=== PATIENT | female | born 1995 | race Caucasian/White ===

== ENCOUNTER 2016-11-28 09:11 | Emergency (ER) | payer OTHER ==
[~2016-11-28] VITALS: Ht 160 cm; Wt 63.5 kg
[~2016-11-28 09:11] MED LIST: CEPH-38 PO; CEPH500C PO; CODE-54 PO; IBP600T1 PO; PREN1TAB19 PO; PRENATAL VITAMINS
[2016-11-28 09:52] LABS: BILIRUBIN,URINE NEGATIVE (NEGATIVE); KETONES,URINE NEGATIVE (NEGATIVE); LEUKOCYTE ESTERASE ,URINE NEGATIVE (NEGATIVE); NITRITE,URINE NEGATIVE (NEGATIVE); PH,URINE 6 (5-9); PROTEIN,URINE NEGATIVE (NEGATIVE); UROBILINOGEN,URINE NORMAL (NORMAL)
[2016-11-28 10:02] LABS: SQUAMOUS EPITHELIAL CELL,UR 0-2 /HPF
--- NOTE | 2016-11-28 10:48 | ED GU-Female ---
General Chief Complaint: Abdominal/GI Problems Stated Complaint: LT SIDE PAIN,LOWER ABD PAIN Nursing Triage Note: ARRIVED VIA AMB TO ROOM 09. COMPLAINS OF LEFT LOWER ABD PAIN THAT HAS RADIATED TO SUPRAPUBIC. STATES SHE HURTS WHEN SHE MOVES AND WHEN SHE HAS SEX. PT'S PARTNER STATES HE HAS GENITAL WARTS BUT SHE SHOWS NO SIGN OF THEM. Nursing Sepsis Screen: No Definite Risk Source: patient Exam Limitations: no limitations History of Present Illness Time seen by provider: 10:46 Initial Comments 2ER with reports of a 5 day history of left lower quadrant abdominal pain that radiates to the suprapubic and right lower quadrant. Pain is worse with sexual intercourse. She denies any unusual vaginal discharge but states that she does have a Mirena. She reports nausea no vomiting. No fevers or chills. No constipation or diarrhea. She does report urinary hesitancy. Timing/Duration: week Severity/Quality: moderate Location: LLQ, suprapubic Radiation: none Activities at Onset: none Prior Genitourinary Problems: none Modifying Factors: Worsens With Other (intercourse) Allergies and Home Medications Allergies Coded Allergies: No Known Drug Allergies (Unverified , 09/05/13) Home Medications No Active Prescriptions or Reported Meds Constitutional: see HPI EENTM: see HPI Respiratory: no symptoms reported Cardiovascular: no symptoms reported Genitourinary: see HPI, denies burning, denies discharge, dysuria, denies frequency, denies flank pain, denies hematuria, pain Musculoskeletal: no symptoms reported Skin: no symptoms reported Psychiatric/Neurological: No Symptoms Reported Endocrine: No Symptoms Reported Past Heaaldb-Vpddmo-Flvaon Hx Patient Social History Recent Foreign Travel: No Contact w/Someone Who Travel: No Recent Infectious Disease Expo: No Immunizations Up To Date Tetanus Booster (TDap): Unknown PED Vaccines UTD: No Surgeries HX Surgeries: No Respiratory Hx Respiratory Disorders: No Cardiovascular Hx Cardiac Disorders: No Neurological Hx Neurological Disorders: No Reproductive System Sexually Transmitted Disease: Yes (PAST HX) Genitourinary Hx Genitourinary Disorders: No Gastrointestinal Hx Gastrointestinal Disorders: No Musculoskeletal Hx Musculoskeletal Disorders: No Endocrine Hx Endocrine Disorders: No HEENT HX ENT Disorders: No Cancer Hx Cancer: No Psychosocial Hx Psychiatric Problems: No Integumentary HX Skin/Integumentary Disorder: No Blood Transfusions Hx Blood Disorders: No Adverse Reaction to a Blood Tr: No Family Medical History Family Medial History: FH: cancer FH: lymphoma Physical Exam Vital Signs Vital Sign - Last 12Hours 11/28/16 09:25 Temp 99.0 Pulse 66 Resp 16 B/P (MAP) 117/57 Pulse Ox 98 Capillary Refill : Less Than 3 Seconds General Appearance: WD/WN, no apparent distress HEENT: PERRL/EOMI, normal ENT inspection Neck: non-tender, full range of motion Cardiovascular: regular rate, rhythm, no murmur Respiratory: normal breath sounds, no respiratory distress, no accessory muscle use Gastrointestinal: normal bowel sounds, non tender, soft Pelvic: discharge (purulent material from cervical os; cervical friability and appears inflamed. strings of IUD visualized. ), No lesions, No mass, No tender w / cervical motion, other Extremities: normal range of motion, non-tender Neurologic/Psychiatric: alert, normal mood/affect, oriented x 3 Skin: normal color, warm/dry Progress/Results/Core Measures Results/Orders Lab Results Laboratory Tests Test 11/28/16 09:40 11/28/16 10:55 11/28/16 11:05 Range/Units Urine Color YELLOW Urine Clarity CLEAR Urine pH 6 5-9 Urine Specific [place] 1.020 1.016-1.022 Urine Protein NEGATIVE NEGATIVE Urine Glucose (UA) NEGATIVE NEGATIVE Urine Ketones NEGATIVE NEGATIVE Urine Nitrite NEGATIVE NEGATIVE Urine Bilirubin NEGATIVE NEGATIVE Urine Urobilinogen NORMAL NORMAL MG/DL Urine Leukocyte Esterase NEGATIVE NEGATIVE Urine RBC (Auto) NEGATIVE NEGATIVE Urine RBC NONE /HPF Urine WBC NONE /HPF Urine Squamous Epithelial Cells 0-2 /HPF Urine Crystals NONE /LPF Urine Bacteria FEW H /HPF Urine Casts NONE /LPF Urine Mucus NEGATIVE /LPF Urine Culture Indicated NO White Blood Count 5.7 4.3-11.0 10^3/uL Red Blood Count 4.29 L 4.35-5.85 10^6/uL Hemoglobin 13.7 11.5-16.0 G/DL Hematocrit 40 35-52 % Mean Corpuscular Volume 94 80-99 FL Mean Corpuscular Hemoglobin 32 25-34 PG Mean Corpuscular Hemoglobin Concent 34 32-36 G/DL Red Cell Distribution Width 12.5 10.0-14.5 % Platelet Count 212 130-400 10^3/uL Mean Platelet Volume 10.1 7.4-10.4 FL Neutrophils (%) (Auto) 73 42-75 % Lymphocytes (%) (Auto) 19 12-44 % Monocytes (%) (Auto) 7 0-12 % Eosinophils (%) (Auto) 1 0-10 % Basophils (%) (Auto) 0 0-10 % Neutrophils # (Auto) 4.2 1.8-7.8 X 10^3 Lymphocytes # (Auto) 1.1 1.0-4.0 X 10^3 Monocytes # (Auto) 0.4 0.0-1.0 X 10^3 Eosinophils # (Auto) 0.0 0.0-0.3 10^3/uL Basophils # (Auto) 0.0 0.0-0.1 10^3/uL Micro Results Microbiology 11/28/16 Genital Culture, Resulted Pending 11/28/16 RAMON Preparation, Resulted Pending 11/28/16 Wet Prep - Final, Resulted My Orders Orders - TUYET BRAVO APRN Cbc With Automated Diff (11/28/16 10:56) Ceftriaxone Injection (Rocephin Injectio (11/28/16 11:00) Lidocaine 1% Injection (Xylocaine 1% Inj (11/28/16 11:00) Azithromycin Tablet (Zithromax Tablet) (11/28/16 11:00) Us Non Ob Pelvis Comp/Transvag (11/28/16 10:58) Medications Given in ED Current Medications Medications Dose Ordered Sig/Aníbal Route Start Time Stop Time Status Last Admin Dose Admin Ceftriaxone Sodium 1,000 mg ONCE ONCE IM 11/28/16 11:00 11/28/16 11:01 DC 11/28/16 11:11 1,000 MG Lidocaine HCl 2.1 ml ONCE ONCE INJ 11/28/16 11:00 11/28/16 11:01 DC 11/28/16 11:11 2.1 ML Vital Signs/I&O Vital Sign - Last 12Hours 11/28/16 09:25 Temp 99.0 Pulse 66 Resp 16 B/P (MAP) 117/57 Pulse Ox 98 Blood Pressure Mean: 77 Point of Care Testing Urine -Bedside: Negative Departure Impression Impression: Primary Impression: Bacterial vaginosis Additional Impression: LLQ pain Disposition: 01 HOME, SELF-CARE Condition: Stable Departure-Patient Inst. Decision time for Depature: 11:31 Referrals: ANGELIQUE MEJÍA DO (PCP) Primary Care Physician MALACHI PATTERSON APRN (Family) Primary Care Physician Patient Instructions: Bacterial Vaginosis Add. Discharge Instructions: 1. Antibiotics as directed 2. Follow-up with your doctor next week 3. Return to ER for any worsening All discharge instructions reviewed with patient and/or family. Voiced understanding. Scripts Metronidazole (Flagyl) 500 Mg Tablet 500 MG PO BID, #14 TAB Prov: TUYET BRAVO APRN 11/28/16 TUYET BRAVO APRN Nov 28, 2016 10:48
[2016-11-28] MEDS ORDERED: AZITHROMYCIN 250 MG TAB (ZITHROMAX) PO SCH (11:00)
[2016-11-28] MEDS ORDERED: LIDOCAINE 1% INJ 20 ML (XYLOCAINE) VIAL INJ ONE (11:00)
[2016-11-28] MEDS ORDERED: cefTRIAXone 1 GM (ROCEPHIN) VIAL IM ONE (11:00)
[2016-11-28 11:13] LABS: BASOPHILS % (AUTO) 0 % (0-10); EOSINOPHILS % (AUTO) 1 % (0-10); LYMPHOCYTES # (AUTO) 1.1 X 10^3 (1.0-4.0); LYMPHOCYTES % (AUTO) 19 % (12-44); MEAN CORPUSCULAR HEMOGLOBIN 32 PG (25-34); MEAN CORPUSCULAR HGB CONC 34 G/DL (32-36); MEAN CORPUSCULAR VOLUME 94 FL (80-99); MEAN PLATELET VOLUME 10.1 FL (7.4-10.4); MONOCYTES # (AUTO) 0.4 X 10^3 (0.0-1.0); MONOCYTES % (AUTO) 7 % (0-12); NEUTROPHILS # (AUTO) 4.2 X 10^3 (1.8-7.8); NEUTROPHILS % (AUTO) 73 % (42-75); PLATELET COUNT 212 10^3/uL (130-400); RED BLOOD COUNT 4.29 10^6/uL (4.35-5.85); RED CELL DISTRIBUTION WIDTH 12.5 % (10.0-14.5); WHITE BLOOD COUNT 5.7 10^3/uL (4.3-11.0)
[2016-11-28] MEDS ORDERED: METR500T PO (11:32)
[2016-11-28 11:57] VITALS: BP 112/61
--- NOTE | 2016-11-28 12:16 | Diagnostic Imaging Report ---
EXAM: Transabdominal and transvaginal pelvic ultrasound. INDICATION: Left pelvic pain. FINDINGS: The uterus is 7.9 x 5.6 x 4.1 cm. The endometrial stripe is by a small amount of endometrial fluid. The total thickness of the endometrial stripe is 4 mm. There is the suggestion of an IUD which appears to be in good position. The right ovary is 2.2 x 1.3 x 2.5 cm. The left ovary is 4.4 x 2.1 x 1.9 cm. The left ovary demonstrates a 2.2 x 1.4 x 1.8 cm centrally cystic lesion with thickened borrego suggestive of corpus luteum. Arterial and venous waveforms are demonstrated in both ovaries. A small amount of free fluid is seen in the left side of the pelvis. IMPRESSION: Small amount of free fluid is seen in the left adnexa. There is a 2.2 cm corpus luteum cyst seen in the left ovary. Dictated by: Dictated on workstation # [id number]
== END 2016-11-28 11:57 | disposition home or self-care (01) ==
LOC: EDUNIT# 09:11 → ER 09:14
DX: N83.12 Corpus luteum cyst of left ovary (principal); Z97.5 Presence of (intrauterine) contraceptive device; R10.32 Left lower quadrant pain
CPT/HCPCS: 36415; 76830; 76856; 81000; 84703; 85025; 87070; 87210; 87220; 87491; 87591; 96372; 99284

== ENCOUNTER 2017-08-28 10:08 | Outpatient (CLI) | payer OTHER ==
[~2017-08-28] VITALS: Ht 160 cm; Wt 69.4 kg
[~2017-08-28 10:08] MED LIST changes: +METR500T PO
[2017-08-29] MEDS ORDERED: IBUP-1773 PO (08:22)
[2017-08-29] MEDS ORDERED: HYDR-757 PO (08:22)
== END 2017-08-28 10:42 ==
LOC: PREOP 10:08
PROVIDERS: ATTEND Obstetrics & Gynecology
DX: Z01.818 Encounter for other preprocedural examination (principal); O02.1 Missed abortion

== ENCOUNTER 2017-08-29 07:08 | Day surgery (SDC) | payer OTHER ==
[~2017-08-29] VITALS: Ht 160 cm; Wt 69.4 kg
--- NOTE | 2017-08-29 07:14 | Progress Note-Pre Operative ---
Pre-Operative Progress Note H&P Reviewed The H&P was reviewed, patient examined and no changes noted. Date Seen by Provider: August 29, 2017 Time Seen by Provider: 08:15 Date H&P Reviewed: August 29, 2017 Time H&P Reviewed: 08:15 Pre-Operative Diagnosis: Missed AB measuring 9weeks 3 days CHANDLER BYRD DO August 29, 2017 7:14 am
[2017-08-29 07:15] VITALS: BP 138/89
[2017-08-29] MEDS: LACTATED RINGERS 1,000 ML IV PRN ×2 (07:35→09:20)
[2017-08-29 07:45] LABS: BASOPHILS % (AUTO) 0 % (0-10); EOSINOPHILS # (AUTO) 0.1 10^3/uL (0.0-0.3); EOSINOPHILS % (AUTO) 1 % (0-10); HEMATOCRIT 39 % (35-52); HEMOGLOBIN 13.7 G/DL (11.5-16.0); LYMPHOCYTES # (AUTO) 1.4 X 10^3 (1.0-4.0); LYMPHOCYTES % (AUTO) 25 % (12-44); MEAN CORPUSCULAR HEMOGLOBIN 33 PG (25-34); MEAN CORPUSCULAR HGB CONC 36 G/DL (32-36); MEAN CORPUSCULAR VOLUME 94 FL (80-99); MEAN PLATELET VOLUME 9.6 FL (7.4-10.4); MONOCYTES # (AUTO) 0.5 X 10^3 (0.0-1.0); MONOCYTES % (AUTO) 9 % (0-12); NEUTROPHILS # (AUTO) 3.6 X 10^3 (1.8-7.8); NEUTROPHILS % (AUTO) 64 % (42-75); PLATELET COUNT 248 10^3/uL (130-400); RED CELL DISTRIBUTION WIDTH 12.3 % (10.0-14.5); WHITE BLOOD COUNT 5.6 10^3/uL (4.3-11.0)
[2017-08-29] MEDS ORDERED: MIDAZOLAM 2 MG/2 ML (VERSED) VIAL ONE ×2 (07:45→08:06)
[2017-08-29] MEDS ORDERED: fentaNYL INJECTION 100 MCG/2 ML AMP ONE (07:45)
[2017-08-29] MEDS ORDERED: KETOROLAC 30 MG/ML VIAL ONE (07:45)
[2017-08-29] MEDS ORDERED: proPOfol 200 MG/20 ML (DIPRIVAN) VIAL IV ONE (07:45)
[2017-08-29] MEDS ORDERED: ONDANSETRON 4 MG/2 ML (SDV) Z0FRAN ONE (07:45)
[2017-08-29] MEDS ORDERED: DEXAMETHASONE 10 MG/ML (DECADRON) 1 ML VIAL ONE (07:45)
[2017-08-29] MEDS ORDERED: LIDOCAINE PF 2% 5 ML (XYLOCAINE) VIAL ONE (07:45)
[2017-08-29] MEDS ORDERED: MIDAZOLAM 10 MG/2 ML (VERSED) VIAL IVP PRN (08:00)
[2017-08-29] MEDS ORDERED: D5 LR IV SOLUTION 1,000 ML IV SCH (08:19)
--- NOTE | 2017-08-29 08:21 | Discharge Inst-Women's Service ---
Discharge Inst-Women's Serv Depart Medication/Instructions New, Converted or Re-Newed RX: RX on Chart Consults/Follow Up Additional Follow Up: Yes Orders/Referrals DR. Byrd in 3 weeks Activity Activity: Activity as Tolerated Driving Instructions: No Driving for 1 Week NO SMOKING: NO SMOKING Nothing Inside Vagina: No Douching, No Cleone, No Tampons Diet Discharge Diet: No Restrictions Symptoms to Report to : Bleeding Excessive, Pain Increased, Fever Over 101 Degrees F, Vaginal Bleeding Increase, Questions/Concerns For Any Problems or Questions: Contact Your Physician CHANDLER BYRD DO August 29, 2017 8:21 am
[2017-08-29] MEDS ORDERED: HYDR-757 PO (08:22)
[2017-08-29] MEDS ORDERED: IBUP-1773 PO (08:22)
[2017-08-29] MEDS ORDERED: MIDAZOLAM 2 MG/2 ML (VERSED) VIAL IV PRN (08:30)
[2017-08-29] MEDS ORDERED: KETOROLAC 30 MG/ML VIAL IVP ONE (08:30)
[2017-08-29] MEDS ORDERED: HYDROcodone/APAP 5 MG/325 MG (LORTAB) TAB PO PRN (08:30)
[2017-08-29] MEDS ORDERED: ONDANSETRON 4 MG/2 ML (SDV) Z0FRAN IVP PRN ×2 (08:30→09:00)
[2017-08-29] MEDS ORDERED: SEVOFLURANE (ULTANE) 15 ML INHAL SOLN ONE (08:33)
[2017-08-29] MEDS ORDERED: morphine INJ 10 MG/ML 1ML (SYR OR VIAL) IVP PRN (09:00)
[2017-08-29] MEDS ORDERED: morphine INJ 10 MG/ML 1ML (SYR OR VIAL) ONE (09:18)
[2017-08-29 09:50] VITALS: BP 119/65
[2017-08-29] MEDS ORDERED: HYDROcodone/APAP 5 MG/325 MG (LORTAB) TAB ONE (10:10)
[2017-08-29 10:20] VITALS: BP 116/62
[2017-08-29 10:50] VITALS: BP 110/68
--- NOTE | 2017-08-29 10:54 | Anesthesia-General Post-Op ---
General Patient Condition Mental Status/LOC: Same as Preop Cardiovascular: Satisfactory Nausea/Vomiting: Absent Respiratory: Satisfactory Pain: Controlled Complications: Absent Post Op Complications Complications None Follow Up Care/Instructions Patient Instructions None needed. Anesthesia/Patient Condition Patient Condition Patient is doing well, no complaints, stable vital signs, no apparent adverse anesthesia problems. No complications reported per nursing. KAE BARRAGAN CRNA August 29, 2017 10:54
--- NOTE | 2017-08-30 13:23 | OPERATIVE REPORT ---
DATE OF SERVICE: PREOPERATIVE DIAGNOSES: 1. A 21-year-old G4, P1 at 10 weeks and 6 days gestation. 2. Missed AB. POSTOPERATIVE DIAGNOSES: 1. A 21-year-old G4, P1 at 10 weeks and 6 days gestation. 2. Missed AB. PROCEDURE: Suction D and C. SURGEON: Dr. Chandler Byrd. ANESTHESIA: General. ESTIMATED BLOOD LOSS: 400 mL. URINE OUTPUT: 150 mL clear urine. FLUIDS: 1500 mL of lactated Ringer's solution. FINDINGS: There is a moderate amount of products of conception, grossly normal uterus and cervix and vagina. SPECIMEN SENT: Products of conceptions. INDICATION FOR PROCEDURE: A 21-year-old female was seen in my office earlier in the week for first visit where it was found that she was supposed to be 10 weeks' gestation and was measuring 9 weeks and there was no cardiac activity demonstrated on ultrasound. Beta hCG levels were drawn and it was found to be following appropriately and consistently with missed AB, so I discussed with the patient proceeding with suction D and C versus a more conservative manner of management and allowing time and waiting for her to miscarry on her own or doing a medical induction of miscarriage with misoprostol. The patient elected to proceed with D and C. Risks of procedure were discussed with the patient in detail including risks of bleeding, infection and damaging the uterus, possible need for blood transfusion, postoperative complications and even . After everything was discussed with the patient and her , consent was obtained in the preoperative area and the patient was taken to the operating room. OPERATIVE REPORT IN DETAIL: Once in the operating room, general anesthesia was found to be adequate, she was placed in dorsal lithotomy position, prepped and draped in normal sterile fashion. A weighted speculum was inserted in the patient's vagina and a straight catheter was used to catheterize the patient. The cervix was then grasped at 12 o'clock position using a long Allis clamp. I then gently dilated cervix using Hegar dilators to a maximum dilatation of 1.2 cm at which point, I select an 8 rigid [place] curette and placed this within the endometrial cavity and then attached to a [place] device and apply suction. The suction rises all the way up to 55 mmHg. I methodically clear out the endometrial cavity on several circulating passes and a moderate amount of tissue is collected. After this was done and the bleeding seemed to slow down, I then performed a light curettage using a medium endometrial curette. There is no evidence of residual products of conception and make one final pass with the suction curette after which the bleeding is noted to be minimal. I then removed all other instruments from the patient's vagina. The patient tolerated the procedure well and was taken to recovery in stable condition. Lap and sponge counts were correct at the end of the procedure. Instrument counts are correct as well. Job ID: [id number] DocumentID: [id number] Dictated Date: 08/30/2017 07:48:26 [employer] Trimmer Date: 08/30/2017 13:23:19 Dictated By: CHANDLER BYRD DO
== END 2017-08-29 10:50 | disposition home or self-care (01) ==
LOC: SDC 07:08
PROVIDERS: ATTEND Obstetrics & Gynecology
DX: O02.1 Missed abortion (principal); F17.210 Nicotine dependence, cigarettes, uncomplicated
CPT/HCPCS: 36415; 85025; 86850; 86900; 86901; 87081; 88305

== ENCOUNTER 2018-01-10 14:42 | Emergency (ER) | payer OTHER ==
[~2018-01-10] VITALS: Ht 162.6 cm; Wt 70.3 kg
[~2018-01-10 14:42] MED LIST changes: +HYDR-4226 PO; +IBUP-1773 PO
--- NOTE | 2018-01-10 16:43 | ED GU-Female ---
General Chief Complaint: -Female Stated Complaint: 6 WKS , BLEEDING Nursing Triage Note: pt complaint of vaginal bleeding starting last night. states small amount with clots. pt 6 wks preg. pt has had 2 miscarricages past most recent a D&C in august Nursing Sepsis Screen: No Definite Risk Source: patient Exam Limitations: no limitations History of Present Illness Date Seen by Provider: Jan 10, 2018 Time Seen by Provider: 16:42 Initial Comments To ER per protocol with reports of vaginal bleeding that started last night. Small amount with clots. She has trace result to be about 6 weeks . Her last missed her period was in November. History of 3 miscarriages. She follows with Dr. COOPER. She denies fevers or chills but does report some lower abdominal cramping. Timing/Duration: yesterday Severity/Quality: moderate Location: suprapubic Activities at Onset: none Associated Symptoms: No nausea/vomiting, No urinary frequency Allergies and Home Medications Allergies Coded Allergies: No Known Drug Allergies (Unverified , 09/05/13) Home Medications Hydrocodone/Acetaminophen 1 Each Tablet, 1-2 TAB PO Q4H PRN for PAIN-MODERATE Prescribed by: CHANDLER COOPER on 08/29/17821 Ibuprofen 600 Mg Tablet, 600 MG PO Q6H Prescribed by: CHANDLER COOPER on 08/29/17821 Patient Home Medication List Home Medication List Reviewed: Yes Review of Systems Review of Systems Constitutional: see HPI EENTM: see HPI Respiratory: no symptoms reported Cardiovascular: no symptoms reported Genitourinary: no symptoms reported Musculoskeletal: no symptoms reported Skin: no symptoms reported Psychiatric/Neurological: No Symptoms Reported Endocrine: No Symptoms Reported Hematologic/Lymphatic: No Symptoms Reported Past Nsnzsom-Qppsqf-Casens Hx Patient Social History Type Used: Electronic/Vapor Recent Foreign Travel: No Contact w/Someone Who Travel: No Recent Infectious Disease Expo: No Recent Hopitalizations: No Immunizations Up To Date Tetanus Booster (TDap): Unknown PED Vaccines UTD: No Seasonal Allergies Seasonal Allergies: Yes Past Medical History Surgeries: No Respiratory: No Cardiac: No Neurological: No Sexually Transmitted Disease: Yes (PAST HX) Genitourinary: No Gastrointestinal: No Musculoskeletal: No Endocrine: No Cancer: No Psychosocial: No Integumentary: No Blood Disorders: No Adverse Reaction/Blood Tranf: No Family Medical History FH: cancer FH: lymphoma Physical Exam Vital Signs Vital Signs - First Documented 01/10/18 15:41 Temp 99.9 Pulse 95 Resp 18 B/P (MAP) 135/83 (100) Pulse Ox 100 O2 Delivery Room Air Capillary Refill : Less Than 3 Seconds Height, Weight, BMI Height: 5'4.00" Weight: 155lbs. 0.0oz. 70.435111be; 27.1 BMI Method:Stated General Appearance: WD/WN, no apparent distress HEENT: PERRL/EOMI, normal ENT inspection Neck: non-tender, full range of motion Respiratory: no respiratory distress, no accessory muscle use Gastrointestinal: normal bowel sounds, non tender, soft Extremities: normal range of motion, non-tender Neurologic/Psychiatric: alert, normal mood/affect, oriented x 3 Skin: normal color, warm/dry Progress/Results/Core Measures Suspected Sepsis Recent Fever Within 48 Hours: No Infection Criteria Present: None New/Unexplained Altered Menta: No Sepsis Screen: No Definite Risk SIRS Temperature:99.9 Pulse: 95 Respiratory Rate: 18 Laboratory Tests 01/10/18 17:30: White Blood Count 4.9 Blood Pressure 135 /83 Mean: 100 Laboratory Tests 01/10/18 17:30: Platelet Count 277 Results/Orders Lab Results Laboratory Tests Test 01/10/18 13:35 01/10/18 17:30 Range/Units Urine Color YELLOW Urine Clarity CLEAR Urine pH 7 5-9 Urine Specific [place] 1.010 L 1.016-1.022 Urine Protein NEGATIVE NEGATIVE Urine Glucose (UA) NEGATIVE NEGATIVE Urine Ketones NEGATIVE NEGATIVE Urine Nitrite NEGATIVE NEGATIVE Urine Bilirubin NEGATIVE NEGATIVE Urine Urobilinogen NORMAL NORMAL MG/DL Urine Leukocyte Esterase NEGATIVE NEGATIVE Urine RBC (Auto) 5+ H NEGATIVE Urine RBC 50-100 H /HPF Urine WBC NONE /HPF Urine Crystals NONE /LPF Urine Bacteria NEGATIVE /HPF Urine Casts NONE /LPF Urine Mucus NEGATIVE /LPF Urine Culture Indicated NO White Blood Count 4.9 4.3-11.0 10^3/uL Red Blood Count 4.05 L 4.35-5.85 10^6/uL Hemoglobin 13.1 11.5-16.0 G/DL Hematocrit 38 35-52 % Mean Corpuscular Volume 94 80-99 FL Mean Corpuscular Hemoglobin 32 25-34 PG Mean Corpuscular Hemoglobin Concent 35 32-36 G/DL Red Cell Distribution Width 13.0 10.0-14.5 % Platelet Count 277 130-400 10^3/uL Mean Platelet Volume 9.6 7.4-10.4 FL Neutrophils (%) (Auto) 65 42-75 % Lymphocytes (%) (Auto) 27 12-44 % Monocytes (%) (Auto) 7 0-12 % Eosinophils (%) (Auto) 1 0-10 % Basophils (%) (Auto) 0 0-10 % Neutrophils # (Auto) 3.2 1.8-7.8 X 10^3 Lymphocytes # (Auto) 1.3 1.0-4.0 X 10^3 Monocytes # (Auto) 0.3 0.0-1.0 X 10^3 Eosinophils # (Auto) 0.1 0.0-0.3 10^3/uL Basophils # (Auto) 0.0 0.0-0.1 10^3/uL Human Chorionic Gonadotropin, Quant 797 H <5 MIU/ML My Orders Orders - TUYET BRAVO APRN Cbc With Automated Diff (01/10/18 16:16) Abo Rh Type (01/10/18 16:16) Hcg,Quantitative (01/10/18 16:16) Ua Culture If Indicated (01/10/18 16:16) Us Ob Transvaginal [id number] (01/10/18 16:39) Vital Signs/I&O 01/10/18 15:41 Temp 99.9 Pulse 95 Resp 18 B/P (MAP) 135/83 (100) Pulse Ox 100 O2 Delivery Room Air Capillary Refill : Less Than 3 Seconds Blood Pressure Mean: 100 Departure Impression Primary Impression: Threatened miscarriage Disposition: 01 HOME, SELF-CARE Condition: Stable Departure-Patient Inst. Decision time for Depature: 18:40 Referrals: ANGELIQUE MEJÍA DO (PCP) Primary Care Physician MALACHI PATTERSON APRN (Family) Primary Care Physician Patient Instructions: Threatened Miscarriage (DC) Add. Discharge Instructions: 1. Follow-up with Dr. Cooper next week 2. Return to ER for any concerns 3. All discharge instructions reviewed with patient and/or family. Voiced understanding. Copy Copies To 1: CHANDLER COOPER PETER J APRN Jan 10, 2018 16:43
[2018-01-10 17:37] LABS: BASOPHILS % (AUTO) 0 % (0-10); EOSINOPHILS # (AUTO) 0.1 10^3/uL (0.0-0.3); EOSINOPHILS % (AUTO) 1 % (0-10); HEMATOCRIT 38 % (35-52); HEMOGLOBIN 13.1 G/DL (11.5-16.0); LYMPHOCYTES # (AUTO) 1.3 X 10^3 (1.0-4.0); LYMPHOCYTES % (AUTO) 27 % (12-44); MEAN CORPUSCULAR HEMOGLOBIN 32 PG (25-34); MEAN CORPUSCULAR HGB CONC 35 G/DL (32-36); MEAN CORPUSCULAR VOLUME 94 FL (80-99); MEAN PLATELET VOLUME 9.6 FL (7.4-10.4); MONOCYTES # (AUTO) 0.3 X 10^3 (0.0-1.0); MONOCYTES % (AUTO) 7 % (0-12); NEUTROPHILS # (AUTO) 3.2 X 10^3 (1.8-7.8); NEUTROPHILS % (AUTO) 65 % (42-75); PLATELET COUNT 277 10^3/uL (130-400); RED BLOOD COUNT 4.05 10^6/uL (4.35-5.85); WHITE BLOOD COUNT 4.9 10^3/uL (4.3-11.0)
[2018-01-10 17:39] LABS: BILIRUBIN,URINE NEGATIVE (NEGATIVE); CLARITY,URINE CLEAR; COLOR,URINE YELLOW; GLUCOSE, URINE (UA) NEGATIVE (NEGATIVE); KETONES,URINE NEGATIVE (NEGATIVE); LEUKOCYTE ESTERASE ,URINE NEGATIVE (NEGATIVE); NITRITE,URINE NEGATIVE (NEGATIVE); PH,URINE 7 (5-9); PROTEIN,URINE NEGATIVE (NEGATIVE); UROBILINOGEN,URINE NORMAL (NORMAL)
[2018-01-10 18:47] LABS: BACTERIA,URINE NEGATIVE /HPF; RBC,URINE 50-100 /HPF
--- NOTE | 2018-01-10 18:53 | Diagnostic Imaging Report ---
INDICATION: and bleeding. EXAMINATION: OB ultrasound. FINDINGS: There is an elongated intrauterine fluidlike collection showing mobility during scanning without an identifiable yolk sac, embryonic pole or independent cardiac activity. There does appear to be complex fluid within the endometrial canal extending to the cervix suspicious for blood. No extrauterine abnormality. No adnexal lesion. The normal appearing heterogeneous endometrium, itself, is thickened at 1 cm. IMPRESSION: Small elongated fluid collection was mobile within the thickened and irregular endometrial canal, suspicious for blighted ovum. This showed movement during real-time scanning. Short-term followup and serial beta hCG recommended. There is suggestion of some blood within the lower endometrial canal approaching the cervix. No extrauterine abnormality. No evidence for torsion or visualized ectopic gestation. Dictated by: Dictated on workstation # [id number]
[2018-01-10 18:57] VITALS: BP 135/83
== END 2018-01-10 18:57 | disposition home or self-care (01) ==
LOC: EDUNIT# 14:42 → ER 14:45
DX: O20.0 Threatened abortion (principal); Z87.59 Personal history of other complications of pregnancy, childbirth and the puerperium; Z3A.01 Less than 8 weeks gestation of pregnancy
CPT/HCPCS: 36415; 76817; 81000; 84702; 85025; 86900; 86901

== ENCOUNTER → 2018-06-10 | Outpatient (CLI) | payer OTHER ==
--- NOTE | 2018-06-10 15:44 | Diagnostic Imaging Report ---
INDICATION: survey. TECHNIQUE: Multiple real-time grayscale images were obtained over the gravid uterus. COMPARISON: None. FINDINGS: There is a single live fetus in a transverse presentation, head to maternal right. heart rate was recorded at 135 beats per minute. Placenta is anterior. The amniotic fluid volume appears normal. survey demonstrates kidneys, bladder and stomach to be unremarkable. The brain is unremarkable. There is a four-chamber heart. There is a three-vessel cord with normal insertion. spine is unremarkable. Biometrical measurements are as follows: Biparietal 4.90 cm, age 20 weeks 6 days. Head circumference 17.68 cm, age 20 weeks 2 days. Abdominal circumference 15.59 cm, age 20 weeks 6 days. Femur length 3.61 cm, age 21 weeks 4 days. Sonographic estimate age: 21 weeks 0 days. Sonographic estimated date of delivery: 10/21/2018. Estimated Weight: 390 gm (+/- 57 gm). LMP percentile: 68%. heart rate: 135 beats per minute. number: 1 of 1. IMPRESSION: Single live IUP 21 weeks 0 days gestational age with an estimated date of confinement sonographically of 10/21/2018. No complicating features are identified. Dictated by: Dictated on workstation # [id number]
== END ==
LOC: RAD 14:20
PROVIDERS: ATTEND Obstetrics & Gynecology
DX: Z36.89 Encounter for other specified antenatal screening (principal); Z3A.21 21 weeks gestation of pregnancy
CPT/HCPCS: 76805

== ENCOUNTER 2018-10-06 20:12 | Inpatient (IN) | payer OTHER ==
[~2018-10-06] VITALS: Ht 161.3 cm; Wt 81.6 kg
--- NOTE | 2018-10-06 20:18 | NUR ---
SADIA AUSTIN presented to unit via ambulation from ED, accompanied by family members, with c/o CONTRACTIONS. SADIA AUSTIN weighed, gowned, voided, and to bed. EFHM and TOCO applied, VS taken. SADIA AUSTIN oriented to bed controls, call light, TV, heat, and A/C controls.
[2018-10-06] MEDS ORDERED: PREN1TAB19 PO (20:31)
[2018-10-06] MEDS ORDERED: ASPI-999 PO (20:31)
[2018-10-06 20:35] VITALS: BP 134/77
--- NOTE | 2018-10-06 21:36 | NUR ---
notified of pt's arrival, sve, and assessment. admission order received.
[2018-10-06] MEDS ORDERED: D5 LR IV SOLUTION 1,000 ML IV ONE (21:50)
[2018-10-06] MEDS ORDERED: D5 LR IV SOLUTION 1,000 ML IV SCH (22:12)
[2018-10-06] MEDS: D5 LR IV SOLUTION 1,000 ML IV SCH (22:41)
[2018-10-06 22:43] LABS: BASOPHILS % (AUTO) 0 % (0-10); EOSINOPHILS # (AUTO) 0.1 10^3/uL (0.0-0.3); EOSINOPHILS % (AUTO) 0 % (0-10); HEMATOCRIT 34 % (35-52); HEMOGLOBIN 11.3 G/DL (11.5-16.0); LYMPHOCYTES # (AUTO) 1.1 X 10^3 (1.0-4.0); LYMPHOCYTES % (AUTO) 10 % (12-44); MEAN CORPUSCULAR HEMOGLOBIN 34 PG (25-34); MEAN CORPUSCULAR HGB CONC 34 G/DL (32-36); MEAN CORPUSCULAR VOLUME 100 FL (80-99); MEAN PLATELET VOLUME 9.6 FL (7.4-10.4); MONOCYTES % (AUTO) 8 % (0-12); NEUTROPHILS # (AUTO) 9.6 X 10^3 (1.8-7.8); NEUTROPHILS % (AUTO) 82 % (42-75); PLATELET COUNT 204 10^3/uL (130-400); RED CELL DISTRIBUTION WIDTH 13.3 % (10.0-14.5); WHITE BLOOD COUNT 11.7 10^3/uL (4.3-11.0)
--- NOTE | 2018-10-06 22:45 | NUR ---
called to unit. update given. no new orders received.
[2018-10-06 23:00] VITALS: BP 120/73
--- NOTE | 2018-10-06 23:11 | NUR ---
Anesthesia provider notified of epidural request.
[2018-10-06] MEDS ORDERED: SUFENTA 0.6MCG/ML BUPIVA 0.125 100 ML ONE (23:16)
[2018-10-06 23:34] VITALS: BP 123/72
[2018-10-06 23:50] VITALS: BP 110/73
[2018-10-07] VITALS (69 sets, daily range): BP systolic 98–165; BP diastolic 53–100
[2018-10-07] MEDS ORDERED: fentaNYL INJECTION 100 MCG/2 ML AMP ONE (00:01)
[2018-10-07] MEDS: EPIDURAL (SUFENTA 0.6MCG/ML BUPIVA 0.125%) 100 ML BAG EPI SCH ×2 (00:25→08:45)
[2018-10-07] MEDS ORDERED: CATHETER FLUSH 10 ML SYR IV PRN (04:00)
[2018-10-07] MEDS ORDERED: LACTATED RINGERS 1,000 ML IV ONE (04:00)
[2018-10-07] MEDS ORDERED: NALOXONE 0.4 MG/ML 1 ML (NARCAN) VIAL IV PRN (04:00)
[2018-10-07] MEDS ORDERED: CATHETER FLUSH 10 ML SYR IV SCH ×2 (06:00→22:00)
[2018-10-07] MEDS: D5 LR IV SOLUTION 1,000 ML IV SCH (06:22)
[2018-10-07] MEDS ORDERED: OXYTOCIN/NORMAL SALINE 500 ML IV SCH ×2 (09:07→15:15)
--- NOTE | 2018-10-07 09:23 | History & Physical-OB ---
OB - Chief Complaint & HPI Date/Time Date of Admission: Date of Admission: Oct 06, 2018 at 22:16 Date seen by a Provider: Oct 07, 2018 Time Seen by a Provider: 08:15 Chief Complaint/History OB-Reason for Admission/Chief: Onset of Labor Hx : 5 Hx Para: 1 Expected Date of Delivery: Oct 23, 2018 Gestational Age in Weeks: 37 Gestational Age in Days: 4 Admission Nurse Assessment Rev: Yes History of Labs AB pos Antibody neg RNI RPR NR HBsAg NR HIV NR GC neg GBS neg Allergies and Home Medications Allergies Coded Allergies: No Known Drug Allergies (Unverified , 09/05/13) Patient Home Medication List Home Medication List Reviewed: Yes OB - History Hx of Present Care: Yes Ultrasounds: Normal mid trimester US Obstetrical Complications: None Medical Complications: None Obstetrical History Hx Multiple Gestation: No Hx Stillbirth: No Hx Complication: Yes (spontaneous abortions x2) Hx Induced Hypertens: No Hx Maternal Gestational Diabet: No Delivery History Hx Dystocia: No Hx Large For Gestational Age I: No Hx Small for Gestational Age I: No Hx Section: No Hx Vaginal Delivery Post C-Sec: No Hx Blood Disorders: No Adverse Rxn to Tranfusion: No Patient Past Medical History none Social History/Family History Recent Infectious Disease Expo: No Sexually Transmitted Disease: Yes (PAST HX) Alcohol Use: Denies Use Recreational Drug Use: No Immunizations Hepatitis A: No Hepatitis B: No Tetanus Booster (TDap): Unknown OB - Admission Exam Physical Exam Vitals: Vital Signs 10/07/18 10/07/18 05:45 07:00 Temp 97.3 Pulse 68 Resp 18 B/P (MAP) 107/63 (78) Pulse Ox 97 O2 Delivery Room Air HEENT: NCAT Lungs: Clear Abdomen: Gravid Extremities: Normal Reflexes: Normal Cervical Dilatation: 4cm Effacement: 75% Station: -1 Membranes: Intact Heart Rate: 130's Accelerations: Accelerations Present Decelerations: No Decelerations Short Term Variability: Present [employer] Variability: Average (6-25) Contractions on Admission: < 5 Minutes Apart Intensity: Firm Labs Laboratory Tests Test 10/06/18 22:30 Range/Units White Blood Count 11.7 H 4.3-11.0 10^3/uL Red Blood Count 3.36 L 4.35-5.85 10^6/uL Hemoglobin 11.3 L 11.5-16.0 G/DL Hematocrit 34 L 35-52 % Mean Corpuscular Volume 100 H 80-99 FL Mean Corpuscular Hemoglobin 34 25-34 PG Mean Corpuscular Hemoglobin Concent 34 32-36 G/DL Red Cell Distribution Width 13.3 10.0-14.5 % Platelet Count 204 130-400 10^3/uL Mean Platelet Volume 9.6 7.4-10.4 FL Neutrophils (%) (Auto) 82 H 42-75 % Lymphocytes (%) (Auto) 10 L 12-44 % Monocytes (%) (Auto) 8 0-12 % Eosinophils (%) (Auto) 0 0-10 % Basophils (%) (Auto) 0 0-10 % Neutrophils # (Auto) 9.6 H 1.8-7.8 X 10^3 Lymphocytes # (Auto) 1.1 1.0-4.0 X 10^3 Monocytes # (Auto) 1.0 0.0-1.0 X 10^3 Eosinophils # (Auto) 0.1 0.0-0.3 10^3/uL Basophils # (Auto) 0.0 0.0-0.1 10^3/uL OB - Assessment/Plan/Diagnosis Assessment Assessment: active labor Admission Dx 23 yo @ 37 weeks Active labor GBS neg Admission Status: Inpatient Order (span 2 midnights) Reason for Inpatient Admission: Active labor at term Plan Plan: Expectant Management CHANDLER BYRD DO Oct 07, 2018 09:23
[2018-10-07] MEDS ORDERED: ONDANSETRON 4 MG/2 ML (SDV) Z0FRAN ONE (09:25)
[2018-10-07] MEDS: ONDANSETRON 4 MG/2 ML (SDV) Z0FRAN IVP PRN ×2 (09:28→11:22)
[2018-10-07] MEDS ORDERED: LIDOCAINE/EPI 2% 1:200,00 (XYLOCAINE) 10 ML VIAL ONE (13:05)
[2018-10-07] MEDS ORDERED: TETANUS,DIPTH,PERTUSS P/F (BOOSTRIX) 0.5 ML VIAL IM ONE (15:15)
[2018-10-07] MEDS ORDERED: BENZOCAINE/MENTHOL (DERMOPLAST) 56 ML CAN TP PRN (15:15)
[2018-10-07] MEDS ORDERED: WITCH HAZEL(TUCKS) 40 EA JAR TOP PRN (15:15)
[2018-10-07] MEDS ORDERED: MEASLES,MUMPS,RUBELLA 1 EA INJ SQ ONE (15:15)
--- NOTE | 2018-10-07 15:21 | OB Labor & Delivery Record ---
L&D History Date of Service Date of Service: Oct 07, 2018 History Expected Date of Delivery: Oct 23, 2018 Gestational Age in Weeks: 37 Hx : 5 Hx Para: 1 Complications Events: Routine care Operative Indications (Cesarea: N/A-Vaginal Delivery Intrapartal Events: None L&D Stage1 Stage One Onset of Labor - Date: Oct 07, 2018 Monitors and Tracing Monitor Mode: External Heart Rate: 125 Monitor Accelerations: Uniform Monitor Decelerations: Variable Station: -1 Skilled Nursing Variability: Average (6-10) Short Term Variability: Present Presentation: Vertex Vital Signs VS - Last 72 Hours, by Label 10/06/18 10/06/18 10/06/18 10/06/18 20:35 23:00 23:34 23:50 Temp 98.6 97.9 Pulse 85 85 83 91 Resp 18 B/P (MAP) 134/77 (96) 120/73 (89) 123/72 (89) 110/73 (85) 10/07/18 10/07/18 10/07/18 10/07/18 00:00 00:05 00:10 00:15 Pulse 97 75 86 Resp 18 18 18 B/P (MAP) 151/70 (97) 125/66 (85) 134/74 (94) Pulse Ox 100 100 100 O2 Delivery Room Air Room Air Room Air 10/07/18 10/07/18 10/07/18 10/07/18 00:20 00:25 00:30 00:40 Temp 97.0 Pulse 76 77 75 86 Resp 18 18 18 18 B/P (MAP) 123/67 (85) 116/62 (80) 110/56 (74) 118/60 (79) Pulse Ox 95 100 98 99 O2 Delivery Room Air Room Air Room Air Room Air 10/07/18 10/07/18 10/07/18 10/07/18 00:45 00:50 00:55 01:05 Pulse 84 84 75 90 Resp 18 18 18 18 B/P (MAP) 103/65 (78) 122/63 (82) 107/68 (81) 99/55 (70) Pulse Ox 98 98 98 98 O2 Delivery Room Air Room Air Room Air Room Air 10/07/18 10/07/18 10/07/18 10/07/18 01:10 01:15 01:20 01:25 Pulse 95 76 75 92 Resp 18 18 18 18 B/P (MAP) 103/65 (78) 104/58 (73) 105/59 (74) 107/62 (77) Pulse Ox 98 98 96 98 O2 Delivery Room Air Room Air Room Air Room Air 10/07/18 10/07/18 10/07/18 10/07/18 01:30 01:45 01:50 02:20 Pulse 73 74 75 82 Resp 18 18 18 18 B/P (MAP) 100/53 (69) 103/57 (72) 100/55 (70) 110/60 (77) Pulse Ox 98 98 98 98 O2 Delivery Room Air Room Air Room Air Room Air 10/07/18 10/07/18 10/07/18 10/07/18 02:35 02:50 03:05 03:20 Temp 97.7 Pulse 75 77 75 68 Resp 18 18 18 18 B/P (MAP) 114/59 (77) 103/66 (78) 106/67 (80) 108/67 (81) Pulse Ox 97 97 98 98 O2 Delivery Room Air Room Air Room Air Room Air 10/07/18 10/07/18 10/07/18 10/07/18 03:35 03:50 04:20 04:35 Pulse 74 68 71 75 Resp 18 18 18 18 B/P (MAP) 112/62 (79) 111/63 (79) 104/57 (73) 113/57 (75) Pulse Ox 98 98 98 97 O2 Delivery Room Air Room Air Room Air Room Air 10/07/18 10/07/18 10/07/18 10/07/18 04:45 05:00 05:15 05:30 Pulse 75 72 67 69 Resp 18 18 18 18 B/P (MAP) 113/57 (75) 99/55 (70) 98/56 (70) 102/58 (73) Pulse Ox 97 97 97 97 O2 Delivery Room Air Room Air Room Air Room Air 10/07/18 10/07/18 10/07/18 10/07/18 05:45 06:00 06:15 06:30 Temp 97.3 Pulse 75 71 67 69 Resp 18 18 18 18 B/P (MAP) 103/64 (77) 102/56 (71) 104/57 (73) 103/56 (72) Pulse Ox 97 O2 Delivery Room Air Room Air Room Air Room Air 10/07/18 10/07/18 10/07/18 10/07/18 06:45 07:00 07:20 07:35 Temp 97.7 Pulse 81 68 69 70 Resp 18 18 18 18 B/P (MAP) 104/58 (73) 107/63 (78) 101/57 (72) 101/64 (76) O2 Delivery Room Air Room Air Room Air Room Air 10/07/18 10/07/18 10/07/18 10/07/18 07:50 08:05 08:20 08:35 Temp 97.6 Pulse 76 75 103 76 Resp 18 18 18 18 B/P (MAP) 107/61 (76) 110/65 (80) 107/62 (77) 112/57 (75) O2 Delivery Room Air Room Air Room Air Room Air 10/07/18 10/07/18 10/07/18 10/07/18 08:50 09:05 09:20 09:35 Pulse 80 73 79 70 Resp 18 18 18 18 B/P (MAP) 117/59 (78) 111/60 (77) 111/59 (76) 106/61 (76) O2 Delivery Room Air Room Air Room Air Room Air 10/07/18 10/07/18 10/07/18 10/07/18 09:50 10:05 10:20 10:35 Temp 97.9 Pulse 76 80 68 80 Resp 18 18 18 18 B/P (MAP) 106/63 (77) 106/64 (78) 109/63 (78) 106/62 (77) O2 Delivery Room Air Room Air Room Air Room Air 10/07/18 10/07/18 10/07/18 10/07/18 10:50 11:05 11:20 11:35 Temp 97.8 Pulse 73 70 78 73 Resp 18 18 18 18 B/P (MAP) 109/67 (81) 108/61 (77) 112/58 (76) 132/69 (90) O2 Delivery Room Air Room Air Room Air Room Air 10/07/18 10/07/18 11:50 12:05 Pulse 71 64 Resp 18 18 B/P (MAP) 111/66 (81) 109/58 (75) O2 Delivery Room Air Room Air Rupture of Membranes Spontaneous Ruture of Membrane: Yes Amniotic Membrane Rupture Time: 0828 Amniotic Membrane Fluid Desc.: Clear Vaginal Bleeding Description: Normal Show Induction/Anesthesia Epidural Cath Placement - Time: 16 Progress/Notes Patient presented in active labor epidural recieved, AROM performed and Pitocin augmentation used to max dose of 4 mu L&D Stage2 Stage Two Stage II Date: Oct 07, 2018 Monitors and Tracing Monitor Mode: External Heart Rate: 125 Monitor Accelerations: Uniform Monitor Decelerations: Variable Gauge Operator Variability: Average (6-10) Short Term Variability: Present Position: Right Occiput Anterior Presentation: Vertex Cord Descript/Complications Cord Vessel Description: 3 Vessels Delivery Type Infant Delivery Method: Spontaneous Vaginal Anterior Shoulder: Right Episiotomy/Perineal Laceration Laceraction(s)/Extensions: Yes Episiotomy Description: Midline Degree (describe repair) midline episiotomy repaired using 3-0 and 2-0 vicryl suture in usual fashion. Clitoral abrasion noted, not requiring repair and was hemostatic Condition of Infant Delivery Notes Weight and apgars pending, live female requiring resuscitation Condition of Condition of Infant: Living Resuscitation Resuscitation: Bag and Mask L&D Stage3 Stage Three Stage III Date: Oct 07, 2018 Pictocin Pitocin Administration mu/min: 4 Pitocin ml/hr: 4 Pitocin Administration Comment: 30 mu wide open at delivery of placenta Placenta Delivery Placenta Delivery: Spontaneous Delivery Summary Summary Estimated blood loss (mL): 400 Attending at delivery: Chandler Byrd DO Condition of Delivery Examined: Cervix Examined, Uterus Explored Post Hemorrhage: No Condition of Mother stable Condition of (s) in Nursery CHANDLER BYRD DO Oct 07, 2018 15:21
--- NOTE | 2018-10-07 15:40 | NUR ---
Pt to room 306 via wheelchair from [facility]. Pt oriented to room and call light, packet explained. Pt denies needs or concerns at this time.
--- NOTE | 2018-10-07 17:00 | NUR ---
To room for VS and fundal check. Pt up in bathroom. +void, light-moderate lochia noted. Pt back to bed. VS taken. FFU/3, light rubra lochia noted, no clots expressed.
[2018-10-07] MEDS: IBUPROFEN 600 MG (MOTRIN) TAB PO SCH ×2 (17:34→23:20)
[2018-10-07] MEDS: HYDROcodone/APAP 5 MG/325 MG (LORTAB) TAB PO PRN (19:41)
[2018-10-07] MEDS: DOCUSATE SODIUM 100 MG (COLACE) CAP PO SCH (19:42)
[2018-10-08 05:03] VITALS: BP 112/73
[2018-10-08] MEDS: IBUPROFEN 600 MG (MOTRIN) TAB PO SCH (05:03)
[2018-10-08 05:53] LABS: BASOPHILS % (AUTO) 0 % (0-10); EOSINOPHILS # (AUTO) 0.1 10^3/uL (0.0-0.3); EOSINOPHILS % (AUTO) 1 % (0-10); HEMATOCRIT 28 % (35-52); HEMOGLOBIN 9.5 G/DL (11.5-16.0); LYMPHOCYTES % (AUTO) 14 % (12-44); MEAN CORPUSCULAR HEMOGLOBIN 34 PG (25-34); MEAN CORPUSCULAR HGB CONC 34 G/DL (32-36); MEAN CORPUSCULAR VOLUME 102 FL (80-99); MEAN PLATELET VOLUME 9.7 FL (7.4-10.4); MONOCYTES # (AUTO) 0.7 X 10^3 (0.0-1.0); MONOCYTES % (AUTO) 9 % (0-12); NEUTROPHILS # (AUTO) 5.7 X 10^3 (1.8-7.8); NEUTROPHILS % (AUTO) 76 % (42-75); PLATELET COUNT 181 10^3/uL (130-400); WHITE BLOOD COUNT 7.4 10^3/uL (4.3-11.0)
[2018-10-08] MEDS: HYDROcodone/APAP 5 MG/325 MG (LORTAB) TAB PO PRN (06:52)
[2018-10-08] MEDS ORDERED: PRENATAL VITAMIN 1 EA TAB PO SCH (07:00)
--- NOTE | 2018-10-08 07:24 | Postpartum Progress Note ---
Note Note Day # 1 Subjective: Patient is without complaints. Ambulating, voiding. Tolerating a regular diet without nausea or vomiting. Normal lochia. Pain is well controlled with oral pain medications. Objective: Physical Exam: General - Alert and oriented, no apparent distress Abdomen - Soft, appropriately tender to palpation, non-distended, fundus firm at umbilicus Extremities - no edema, negative Louise's bilaterally Assessment: PPD 1 NVD Acute blood loss anemia Plan: Routine care. Encourage breast feeding. Encourage ambulation. Ferrous sulfate supplementation. Plan for discharge Vitals - Labs Vital Signs - I&O Vital Signs Date Time Temp Pulse Resp B/P (MAP) Pulse Ox O2 Delivery O2 Flow Rate FiO2 10/08/18 05:03 98.6 71 16 112/73 (86) 96 Room Air 10/07/18 23:21 97.9 73 16 115/66 (82) 98 Room Air 10/07/18 19:45 98.3 87 16 105/63 (77) 97 Room Air 10/07/18 17:00 98.3 80 18 119/56 (77) 98 Room Air 10/07/18 15:04 96 18 134/66 (88) Room Air 10/07/18 14:44 96 18 112/58 (76) Room Air 10/07/18 14:24 114 18 133/68 (89) Room Air 10/07/18 13:55 98.8 100 18 165/100 (121) Room Air 10/07/18 13:20 100 18 119/82 (94) Room Air 10/07/18 13:05 129 18 141/58 (85) Room Air 10/07/18 12:50 87 18 129/70 (89) Room Air 10/07/18 12:35 97.7 75 18 107/56 (73) Room Air 10/07/18 12:20 66 18 107/58 (74) Room Air 10/07/18 12:05 64 18 109/58 (75) Room Air 10/07/18 11:50 71 18 111/66 (81) Room Air 10/07/18 11:35 73 18 132/69 (90) Room Air 10/07/18 11:20 97.8 78 18 112/58 (76) Room Air 10/07/18 11:05 70 18 108/61 (77) Room Air 10/07/18 10:50 73 18 109/67 (81) Room Air 10/07/18 10:35 97.9 80 18 106/62 (77) Room Air 10/07/18 10:20 68 18 109/63 (78) Room Air 10/07/18 10:05 80 18 106/64 (78) Room Air 10/07/18 09:50 76 18 106/63 (77) Room Air 10/07/18 09:35 70 18 106/61 (76) Room Air 10/07/18 09:20 79 18 111/59 (76) Room Air 10/07/18 09:05 73 18 111/60 (77) Room Air 10/07/18 08:50 80 18 117/59 (78) Room Air 10/07/18 08:35 97.6 76 18 112/57 (75) Room Air 10/07/18 08:20 103 18 107/62 (77) Room Air 10/07/18 08:05 75 18 110/65 (80) Room Air 10/07/18 07:50 76 18 107/61 (76) Room Air 10/07/18 07:35 97.7 70 18 101/64 (76) Room Air Labs Laboratory Tests 10/08/18 05:30: White Blood Count 7.4, Red Blood Count 2.78L, Hemoglobin 9.5L, Hematocrit 28L, Mean Corpuscular Volume 102H, Mean Corpuscular Hemoglobin 34, Mean Corpuscular Hemoglobin Concent 34, Red Cell Distribution Width 13.0, Platelet Count 181, Mean Platelet Volume 9.7, Neutrophils (%) (Auto) 76H, Lymphocytes (%) (Auto) 14, Monocytes (%) (Auto) 9, Eosinophils (%) (Auto) 1, Basophils (%) (Auto) 0, Neutrophils # (Auto) 5.7, Lymphocytes # (Auto) 1.0, Monocytes # (Auto) 0.7, Eosinophils # (Auto) 0.1, Basophils # (Auto) 0.0 CHANDLER BYRD DO Oct 08, 2018 07:24
--- NOTE | 2018-10-08 07:25 | Discharge Inst-Women's Service ---
Discharge Inst-Women's Serv Depart Medication/Instructions New, Converted or Re-Newed RX: RX on Chart Consults/Follow Up Additional Follow Up: Yes Orders/Referrals Dr. Byrd in 6 weeks Activity Activity: Activity as Tolerated Driving Instructions: No Driving for 1 Week NO SMOKING: NO SMOKING Nothing Inside Vagina: No Douching, No [place], No Tampons Diet Discharge Diet: No Restrictions Symptoms to Report to : Bleeding Excessive, Pain Increased, Fever Over 101 Degrees F, Vaginal Bleeding Increase, Questions/Concerns For Any Problems or Questions: Contact Your Physician CHANDLER BYRD DO Oct 08, 2018 07:25
[2018-10-08] MEDS ORDERED: DOCU100C37 PO (07:27)
[2018-10-08] MEDS ORDERED: ACHD5005 PO (07:27)
[2018-10-08] MEDS ORDERED: IBUP-844 PO (07:27)
[2018-10-08] MEDS ORDERED: FERR325T18 PO (07:27)
[2018-10-08] MEDS ORDERED: FERROUS SULF 325 MG (IRON) TAB PO SCH (08:00)
--- NOTE | 2018-10-08 08:30 | NUR ---
ambulating in hallways with s/o @ side.
[2018-10-08 09:00] VITALS: BP 125/64
[2018-10-08] MEDS ORDERED: DOCUSATE CALCIUM 240 MG (SURFAK) CAP PO SCH (09:00)
--- NOTE | 2018-10-08 09:00 | NUR ---
initial shift assessment completed, see interventions for further. scheduled medications given, see eMar for further.
[2018-10-08] MEDS: DOCUSATE SODIUM 100 MG (COLACE) CAP PO SCH (12:04)
--- NOTE | 2018-10-08 14:00 | NUR ---
Lortab 1 tab p.o. given prn pain. see eMar for further.
--- NOTE | 2018-10-08 15:24 | NUR ---
was called r/t pt's dismissal to home. being transferred to [facility]. dismissal orders received.
--- NOTE | 2018-10-08 16:15 | NUR ---
dismissal instructions given. verbalizes understanding. reviewed dismissal medications and administration schedule. reviewed follow up appointment. signature page signed.
--- NOTE | 2018-10-08 16:25 | NUR ---
Rx's called into [facility] per pt's request.
--- NOTE | 2018-10-08 18:00 | NUR ---
pt ambulated to private vehicle with s/o @ side. pt stable with no sx's of distress noted.
== END 2018-10-08 18:00 | disposition home or self-care (01) | DRG 806 ==
LOC: WSo 20:12 → LDRP 20:13 → WSo 22:16 → LDRP 22:16 → WS 10-07 15:10
PROVIDERS: ADMIT Obstetrics & Gynecology; ATTEND Obstetrics & Gynecology
PROC: 10E0XZZ Delivery of Products of Conception, External Approach (ICD-10-PCS; principal; 2018-10-07)
PROC: 0W8NXZZ Division of Female Perineum, External Approach (ICD-10-PCS; 2018-10-07)
DX: O26.23 Pregnancy care for patient with recurrent pregnancy loss, third trimester (principal); O90.81 Anemia of the puerperium; D62 Acute posthemorrhagic anemia; Z3A.37 37 weeks gestation of pregnancy; Z37.0 Single live birth
CPT/HCPCS: 36415; 85025; 86850; 86900; 86901; 88307; 99212

== ENCOUNTER 2020-03-15 08:08 | Emergency (ER) | payer OTHER ==
[~2020-03-15] VITALS: Ht 160 cm; Wt 74.8 kg
[~2020-03-15 08:08] MED LIST changes: +ACHD5005 PO; +ASPI-999 PO; +DOCU100C37 PO; +FERR325T18 PO; +IBUP-844 PO
--- NOTE | 2020-03-15 08:21 | ED Abdominal Pain ---
General Stated Complaint: PELVIC PAIN,ABD PAIN Source of Information: Patient Exam Limitations: No Limitations History of Present Illness Date Seen by Provider: Mar 15, 2020 Time Seen by Provider: 08:16 Initial Comments Patient is a 24-year-old female who presents to the emergency room with a chief complaint of lower abdominal pain. Patient states initially she thought her pain was "gas" and took medications to attempt to have a bowel movement. Patient states the pain has been ongoing for 3 days and is getting worse. She has occasional nausea with it. She states she has had ovarian cyst in the past and this pain kind of reminds her of that. She denies any fevers or chills. She has had nausea as stated without vomiting. Normal bowel movements. She denies any abnormal vaginal discharge, dysuria urgency or frequency. She has had an IUD in place for the last 18 months. She states she has a little bit of back pain. She states every bump in the road in the car on the way here was painful to her. She has taken ibuprofen without relief of symptoms. All other review of systems reviewed and negative except as stated. Timing/Duration: 2-3 Days Severity/Quality: Severe Location: RLQ, LLQ Radiation: Back Activities at Onset: Activity Associated Symptoms: Nausea/Vomiting Allergies and Home Medications Allergies Coded Allergies: No Known Drug Allergies (Unverified , 09/05/13) Home Medications Amoxicillin/Potassium Clav 1 Each Tablet, 1 EACH PO TID Prescribed by: SHERLYN TAVAREZ on 03/15/20 1127 Docusate Sodium 100 Mg Capsule, 100 MG PO BID PRN for CONSTIPATION-1ST LINE Prescribed by: CHANDLER BYRD on 10/08/18726 Ferrous Sulfate 325 Mg Tablet, 325 MG PO DAILY@0800 Prescribed by: CHANDLER BYRD on 10/08/18726 Hydrocodone Bit/Acetaminophen 1 Tab Tab, 1 TAB PO Q4H PRN for PAIN-MODERATE Prescribed by: CHANDLER BYRD on 10/08/18726 Ibuprofen 600 Mg Tablet, 600 MG PO Q6H Prescribed by: CHANDLER BYRD on 10/08/18726 Patient Home Medication List Home Medication List Reviewed: Yes Review of Systems Review of Systems Constitutional: no symptoms reported EENTM: No Symptoms Reported Respiratory: No Symptoms Reported Cardiovascular: No Symptoms Reported Gastrointestinal: Abdominal Pain, Nausea Genitourinary: No Symptoms Reported Musculoskeletal: no symptoms reported Skin: no symptoms reported All Other Systems Reviewed Negative Unless Noted: Yes Past Akwitif-Bequfa-Qytipv Hx Patient Social History Type Used: Electronic/Vapor Recent Foreign Travel: No Contact w/Someone Who Travel: No Recent Hopitalizations: No Immunizations Up To Date Tetanus Booster (TDap): Unknown PED Vaccines UTD: No Seasonal Allergies Seasonal Allergies: Yes Past Medical History Surgeries: Yes (wisdom teeth & d'c ) Respiratory: No Cardiac: No Neurological: No Sexually Transmitted Disease: Yes (PAST HX) Genitourinary: No Gastrointestinal: No Musculoskeletal: No Endocrine: No Cancer: No Psychosocial: No Integumentary: No Blood Disorders: No Adverse Reaction/Blood Tranf: No Family Medical History FH: cancer FH: lymphoma Physical Exam Vital Signs Vital Signs - First Documented 03/15/20 08:13 Temp 37.5 Pulse 133 Resp 20 B/P (MAP) 128/83 (98) Pulse Ox 98 O2 Delivery Room Air Capillary Refill : Height/Weight/BMI Height: 5'3.50" Weight: 180lbs. 0.0oz. [id number]; 31.4 BMI Method:Stated General Appearance: WD/WN, mild distress HEENT: PERRL/EOMI Neck: full range of motion Respiratory: lungs clear, normal breath sounds, no respiratory distress, no accessory muscle use Cardiovascular: regular rate, rhythm, no murmur Gastrointestinal: normal bowel sounds, soft, guarding, rebound, tenderness (Significant tenderness noted with palpation in the lower abdominal area both right and left lower quadrants. She is also very tender suprapubic. She has rebound tenderness most prominent in the right lower quadrant. She has involuntary guarding.) Extremities: non-tender, normal inspection, no pedal edema Neurologic/Psychiatric: alert, normal mood/affect, oriented x 3 Skin: normal color, warm/dry Progress/Results/Core Measures Results/Orders Lab Results Laboratory Tests Test 03/15/20 08:17 03/15/20 09:14 Range/Units Urine Color YELLOW Urine Clarity CLEAR Urine pH 6.0 5-9 Urine Specific [place] 1.015 L 1.016-1.022 Urine Protein NEGATIVE NEGATIVE Urine Glucose (UA) NEGATIVE NEGATIVE Urine Ketones 1+ H NEGATIVE Urine Nitrite NEGATIVE NEGATIVE Urine Bilirubin NEGATIVE NEGATIVE Urine Urobilinogen 0.2 < = 1.0 MG/DL Urine Leukocyte Esterase NEGATIVE NEGATIVE Urine RBC (Auto) TRACE-L NEGATIVE Urine RBC 0-2 /HPF Urine WBC 0-2 /HPF Urine Squamous Epithelial Cells 2-5 /HPF Urine Crystals NONE /LPF Urine Bacteria NEGATIVE /HPF Urine Casts NONE /LPF Urine Mucus NEGATIVE /LPF Urine Culture Indicated NO Urine Test NEGATIVE NEGATIVE White Blood Count 11.3 H 4.3-11.0 10^3/uL Red Blood Count 4.14 3.80-5.11 10^6/uL Hemoglobin 13.4 11.5-16.0 g/dL Hematocrit 40 35-52 % Mean Corpuscular Volume 96 80-99 fL Mean Corpuscular Hemoglobin 32 25-34 pg Mean Corpuscular Hemoglobin Concent 34 32-36 g/dL Red Cell Distribution Width 12.2 10.0-14.5 % Platelet Count 216 130-400 10^3/uL Mean Platelet Volume 9.8 9.0-12.2 fL Immature Granulocyte % (Auto) 0 % Neutrophils (%) (Auto) 82 H 42-75 % Lymphocytes (%) (Auto) 9 L 12-44 % Monocytes (%) (Auto) 8 0-12 % Eosinophils (%) (Auto) 0 0-10 % Basophils (%) (Auto) 0 0-10 % Neutrophils # (Auto) 9.3 H 1.8-7.8 10^3/uL Lymphocytes # (Auto) 1.0 1.0-4.0 10^3/uL Monocytes # (Auto) 0.9 0.0-1.0 10^3/uL Eosinophils # (Auto) 0.0 0.0-0.3 10^3/uL Basophils # (Auto) 0.0 0.0-0.1 10^3/uL Immature Granulocyte # (Auto) 0.0 0.0-0.1 10^3/uL Sodium Level 137 135-145 MMOL/L Potassium Level 3.9 3.6-5.0 MMOL/L Chloride Level 103 98-107 MMOL/L Carbon Dioxide Level 23 21-32 MMOL/L Anion Gap 11 5-14 MMOL/L Blood Urea Nitrogen 13 7-18 MG/DL Creatinine 0.75 0.60-1.30 MG/DL Estimat Glomerular Filtration Rate > 60 BUN/Creatinine Ratio 17 Glucose Level 98 70-105 MG/DL Calcium Level 8.7 8.5-10.1 MG/DL Corrected Calcium 8.4 L 8.5-10.1 MG/DL Total Bilirubin 1.4 H 0.1-1.0 MG/DL Aspartate Amino Transf (AST/SGOT) 16 5-34 U/L Alanine Aminotransferase (ALT/SGPT) 11 0-55 U/L Alkaline Phosphatase 48 40-136 U/L Total Protein 7.5 6.4-8.2 GM/DL Albumin 4.4 3.2-4.5 GM/DL My Orders Orders - SHERLYN TAVAREZ MD Ua Culture If Indicated (03/15/20 08:42) Hcg,Qualitative Urine (03/15/20 08:42) Cbc With Automated Diff (03/15/20 08:42) Comprehensive Metabolic Panel (03/15/20 08:42) Ed Iv/Invasive Line Start (03/15/20 08:42) Ondansetron Injection (Zofran Injectio (03/15/20 08:45) Fentanyl Injection (Sublimaze Injection (03/15/20 08:45) Ct Abdomen/Pelvis W (03/15/20 09:45) Fentanyl Injection (Sublimaze Injection (03/15/20 10:00) Iohexol Injection (Omnipaque 350 Mg/Ml 1 (03/15/20 10:00) Received Contrast (Hold Metformin- Contr (03/15/20 10:00) Sodium Chloride Flush (Catheter Flush Sy (03/15/20 10:00) Ns (Ivpb) (Sodium Chloride 0.9% Ivpb Bag (03/15/20 10:00) Medications Given in ED Current Medications Medications Dose Ordered Sig/Aníbal Route Start Time Stop Time Status Last Admin Dose Admin Fentanyl Citrate 25 mcg Q1H PRN IVP 03/15/20 08:45 03/15/20 09:13 25 MCG Fentanyl Citrate 50 mcg ONCE ONCE IVP 03/15/20 10:00 03/15/20 10:01 DC 03/15/20 09:59 50 MCG Iohexol 100 ml ONCE ONCE IV 03/15/20 10:00 03/15/20 10:01 DC 03/15/20 10:12 94 ML Ondansetron HCl 4 mg ONCE ONCE IVP 03/15/20 08:45 03/15/20 08:46 DC 03/15/20 09:13 4 MG Sodium Chloride 10 ml NEEDED PRN IV 03/15/20 10:00 03/15/20 10:13 10 ML Sodium Chloride 100 ml ONCE ONCE IV 03/15/20 10:00 03/15/20 10:01 DC 03/15/20 10:12 80 ML Vital Signs/I&O 03/15/20 08:13 Temp 37.5 Pulse 133 Resp 20 B/P (MAP) 128/83 (98) Pulse Ox 98 O2 Delivery Room Air Progress Progress Note : Time: 08:41 Progress Note 24-year-old female with a chief complaint of lower abdominal pain onset 3 days ago. Evaluation today includes a physical exam, urinalysis, urine test, basic laboratory panel. Pending the patient's negative test we will get a CAT scan of the abdomen and pelvis to rule out acute intra-abdominal pathology such as appendicitis. 0951 Labs are WNL except for a minimal increase in WBC. Pain not controlled with initial dose of fentanyl. Will administer a second dose. CT scan pending 1127 Patient is much more comfortable after her second dose of fentanyl. CT scan reveals acute sigmoid diverticulitis. We will choose Augmentin 875 mg to be given 3 times a day for the next 7 days. The patient is still breast-feeding and this seems to be the safest option for her to continue breast-feeding. Patient is counseled on monitoring the baby for diarrhea, oral thrush. Recommended to follow-up with her surgical elastic knitter regarding her antibiotics and if the baby develops any of the symptoms. Patient is comfortable with the plan of care, all questions are sought and answered and she is stable for discharge. Patient is given good return precautions including if her symptoms are persisting after 3 days of antibiotic treatment that she come back to the emergency room for reevaluation. Diagnostic Imaging Diagonstic Imaging: CT Plain Films/CT/US/NM/MRI: abdomen Comments [facility]. [place], [place] NAME: SADIA AUSTIN [facility] REC#: [id number] PT STATUS: REG ER : 1995 PHYSICIAN: SHERLYN TAVAREZ MD ADMIT DATE: 03/15/20/ER Draft Date of Exam:03/15/20 CT ABDOMEN/PELVIS W PROCEDURE: CT abdomen and pelvis with contrast. TECHNIQUE: Multiple contiguous axial images were obtained through the abdomen and pelvis after administration of intravenous contrast. Auto Exposure Controls were utilized during the CT exam to meet ALARA standards for radiation dose reduction. All CT scans use one or more of the following dose optimizing techniques: automated exposure control, MA and/or KvP adjustment based on patient size and exam type or iterative reconstruction. INDICATION: Bilateral pelvic pain. COMPARISON: No prior studies are available for comparison. FINDINGS: The lung bases are clear. No discrete liver mass is identified. The gallbladder is unremarkable. No biliary ductal dilatation is identified. The pancreas and spleen are unremarkable. There are occasional splenic calcified granulomas present. The right and left adrenal glands are unremarkable. No adrenal mass is detected. The kidneys are unremarkable. Aorta is nonaneurysmal. No central retroperitoneal or mesenteric lymphadenopathy is detected. The small and large bowel loops are normal in caliber. No obstruction is identified. There is no free fluid or fluid collection identified. There does appear to be significant wall thickening involving the sigmoid colon near the junction with the descending colon. There is hazy pericolonic inflammatory stranding present. Features are most consistent with acute diverticulitis. No abscess formation or bowel obstruction is seen. The uterus is unremarkable and contains an IUD. No free fluid or fluid collection in the pelvis is identified. The bladder is unremarkable. The bony structures are nonacute. IMPRESSION: Features consistent with acute sigmoid diverticulitis. No abscess formation or bowel obstruction is identified. Dictated on workstation # [id number] Dict: 03/15/20 1035 Trans: 03/15/20 1046 [id number] Interpreted by: PALAK MEADOWS MD Electronically signed by: Departure Impression Primary Impression: Abdominal pain Qualified Codes: R10.30 - Lower abdominal pain, unspecified Additional Impression: Acute diverticulitis Disposition: HOME, SELF-CARE Condition: Stable Departure-Patient Inst. Decision time for Depature: 11:28 Referrals: [facility] [place] PHYSIC[place] (PCP) Primary Care Physician Patient Instructions: Diverticulitis (DC) Add. Discharge Instructions: Stick with a liquid diet for the next 2 to 3 days. Then you can slowly advance your diet as tolerated. Take the antibiotics as prescribed, Augmentin 875 mg, 3 times daily for 1 week (7 days. If you are still having severe abdominal pain, if you have a fever, if you are not getting better after 2 to 3 days on the antibiotics please come back to the emergency department for reevaluation. Please follow-up with your primary care physician. Scripts Hydrocodone/Acetaminophen (Hydrocodone/Acetaminophen 5 MG/325 MG TAB) 1 Each Tablet 1 TAB PO Q6H for Pain MDD 10 TABS for 7 Days, #15 TAB Prov: SHERLYN TAVAREZ MD 03/15/20 Amoxicillin/Potassium Clav (Augmentin 875-125 Tablet) 1 Each Tablet 1 EACH PO TID, #21 TAB 0 Refills Prov: SHERLYN TAVAREZ MD 03/15/20 SHERLYN TAVAREZ MD Mar 15, 2020 08:21
[2020-03-15] MEDS ORDERED: fentaNYL INJECTION 100 MCG/2 ML AMP IVP PRN (08:45)
[2020-03-15] MEDS ORDERED: ONDANSETRON 4 MG/2 ML (SDV) Z0FRAN IVP ONE (08:45)
[2020-03-15 08:48] LABS: BILIRUBIN,URINE NEGATIVE (NEGATIVE); CLARITY,URINE CLEAR; COLOR,URINE YELLOW; GLUCOSE, URINE (UA) NEGATIVE (NEGATIVE); KETONES,URINE 1+ (NEGATIVE); LEUKOCYTE ESTERASE ,URINE NEGATIVE (NEGATIVE); NITRITE,URINE NEGATIVE (NEGATIVE); PROTEIN,URINE NEGATIVE (NEGATIVE)
[2020-03-15 08:58] LABS: BACTERIA,URINE NEGATIVE /HPF; RBC,URINE 0-2 /HPF; WBC,URINE 0-2 /HPF
[2020-03-15 09:26] LABS: BASOPHILS % (AUTO) 0 % (0-10); EOSINOPHILS % (AUTO) 0 % (0-10); HEMATOCRIT 40 % (35-52); HEMOGLOBIN 13.4 g/dL (11.5-16.0); LYMPHOCYTES % (AUTO) 9 % (12-44); MEAN CORPUSCULAR HEMOGLOBIN 32 pg (25-34); MEAN CORPUSCULAR HGB CONC 34 g/dL (32-36); MEAN CORPUSCULAR VOLUME 96 fL (80-99); MEAN PLATELET VOLUME 9.8 fL (9.0-12.2); MONOCYTES # (AUTO) 0.9 10^3/uL (0.0-1.0); MONOCYTES % (AUTO) 8 % (0-12); NEUTROPHILS # (AUTO) 9.3 10^3/uL (1.8-7.8); NEUTROPHILS % (AUTO) 82 % (42-75); PLATELET COUNT 216 10^3/uL (130-400); WHITE BLOOD COUNT 11.3 10^3/uL (4.3-11.0)
[2020-03-15 09:37] LABS: ALBUMIN 4.4 GM/DL (3.2-4.5); CHLORIDE 103 MMOL/L (98-107); POTASSIUM 3.9 MMOL/L (3.6-5.0); SODIUM 137 MMOL/L (135-145)
[2020-03-15 09:38] LABS: CALCIUM 8.7 MG/DL (8.5-10.1)
[2020-03-15 09:39] LABS: GLUCOSE 98 MG/DL (70-105)
[2020-03-15 09:40] LABS: TOTAL PROTEIN 7.5 GM/DL (6.4-8.2)
[2020-03-15 09:41] LABS: BILIRUBIN,TOTAL 1.4 MG/DL (0.1-1.0); CARBON DIOXIDE 23 MMOL/L (21-32)
[2020-03-15 09:43] LABS: ALKALINE PHOSPHATASE 48 U/L (40-136); CREATININE SERUM 0.75 MG/DL (0.60-1.30); GFR ESTIMATED > 60
[2020-03-15 09:44] LABS: BUN/CREATININE RATIO 17
[2020-03-15 09:46] LABS: ALANINE AMINOTRANSFERASE 11 U/L (0-55)
[2020-03-15] MEDS ORDERED: IOHEXOL 350 MG/ML 100 ML (OMNIPAQUE 350) VIAL IV ONE (10:00)
[2020-03-15] MEDS ORDERED: NS 100 ML (IVPB) BAG IV ONE (10:00)
[2020-03-15] MEDS ORDERED: HOLD METFORMIN - RECEIVED CONTRAST 20 ML VIAL IV SCH (10:00)
[2020-03-15] MEDS ORDERED: fentaNYL INJECTION 100 MCG/2 ML AMP IVP ONE (10:00)
[2020-03-15] MEDS ORDERED: CATHETER FLUSH 10 ML SYR IV PRN (10:00)
--- NOTE | 2020-03-15 10:47 | Diagnostic Imaging Report ---
PROCEDURE: CT abdomen and pelvis with contrast. TECHNIQUE: Multiple contiguous axial images were obtained through the abdomen and pelvis after administration of intravenous contrast. Auto Exposure Controls were utilized during the CT exam to meet ALARA standards for radiation dose reduction. All CT scans use one or more of the following dose optimizing techniques: automated exposure control, MA and/or KvP adjustment based on patient size and exam type or iterative reconstruction. INDICATION: Bilateral pelvic pain. COMPARISON: No prior studies are available for comparison. FINDINGS: The lung bases are clear. No discrete liver mass is identified. The gallbladder is unremarkable. No biliary ductal dilatation is identified. The pancreas and spleen are unremarkable. There are occasional splenic calcified granulomas present. The right and left adrenal glands are unremarkable. No adrenal mass is detected. The kidneys are unremarkable. Aorta is nonaneurysmal. No central retroperitoneal or mesenteric lymphadenopathy is detected. The small and large bowel loops are normal in caliber. No obstruction is identified. There is no free fluid or fluid collection identified. There does appear to be significant wall thickening involving the sigmoid colon near the junction with the descending colon. There is hazy pericolonic inflammatory stranding present. Features are most consistent with acute diverticulitis. No abscess formation or bowel obstruction is seen. The uterus is unremarkable and contains an IUD. No free fluid or fluid collection in the pelvis is identified. The bladder is unremarkable. The bony structures are nonacute. IMPRESSION: Features consistent with acute sigmoid diverticulitis. No abscess formation or bowel obstruction is identified. Dictated by: Dictated on workstation # [id number]
[2020-03-15] MEDS ORDERED: AMOX-358 PO (11:27)
[2020-03-15] MEDS ORDERED: HYDR-4226 PO (11:31)
[2020-03-15 11:42] VITALS: BP 134/70
== END 2020-03-15 11:42 | disposition home or self-care (01) ==
LOC: EDUNIT# 08:08 → ER 08:09
DX: R10.31 Right lower quadrant pain (principal); R10.32 Left lower quadrant pain; K57.92 Diverticulitis of intestine, part unspecified, without perforation or abscess without bleeding; Z80.7 Family history of other malignant neoplasms of lymphoid, hematopoietic and related tissues
CPT/HCPCS: 36415; 74177; 80053; 81000; 84703; 85025